=== PATIENT | female | born 1980 | race Caucasian/White ===

== ENCOUNTER 2017-01-20 15:19 | Emergency (ER) | payer BC ==
[2017-01-20 16:16] VITALS: BP 127/68
--- NOTE | 2017-01-20 16:36 | UC ---
Ear Complaint HPI - HPI Summary HPI Summary: 36 yo female with onset of left otalgia/left eye redness and d/c and sinus pressure and pain that started the past day or so no f/c no cp or sob has chronic sinus congestion ...takes flonase no eye pain but has has d/c - History of Current Complaint Chief Complaint: UCRespiratory Stated Complaint: HEAD COLD Time Seen by Provider: 01/20/17 16:22 Hx Obtained From: Patient Hx Last Menstrual Period: 01/02/17 Onset/Duration: Gradual Onset, Lasting Hours Severity Initially: Moderate Severity Currently: Moderate Pain Intensity: 3 Pain Scale Used: 0-10 Numeric Associated Signs/Symptoms: Positive: URI Symptoms - Allergies/Home Medications Allergies/Adverse Reactions: Allergies Allergy/AdvReac Type Severity Reaction Status Date / Time Eggs or Egg-derived Products Allergy Severe facial and Verified 01/20/17 16:10 lip swelling dairy Allergy Hives Uncoded 01/20/17 16:10 Home Medications: Home Medications predniSONE TAB* [Deltasone TAB*] 1 tab DAILY 01/20/17 [History Confirmed ] PMH/Surg Hx/FS Hx/Imm Hx Previously Healthy: Yes - Surgical History Surgical History: Yes Surgery Procedure, Year, and Place: C SECTION,TUBAL LIGATION - Family History Known Family History: Positive: Hypertension - Social History Alcohol Use: Rare Substance Use Type: None Smoking Status (MU): Former Smoker Type: Cigarettes Length of Time of Smoking/Using Tobacco: ON AND OFF 5-6 YRS Have You Smoked in the Last Year: Yes Household Exposure Type: Cigarettes - Immunization History Most Recent Influenza Vaccination: no Review of Systems Constitutional: Negative Skin: Negative Eyes: Drainage, Eye Redness ENT: Sore Throat, Ear Ache, Nasal Discharge, Sinus Congestion Respiratory: Negative Cardiovascular: Negative Gastrointestinal: Negative Genitourinary: Negative Motor: Negative Neurovascular: Negative Musculoskeletal: Negative Neurological: Negative Psychological: Negative Is Patient Immunocompromised?: No All Other Systems Reviewed And Are Negative: Yes Physical Exam Triage Information Reviewed: Yes Appearance: Well-Appearing, No Pain Distress, Well-Nourished Vital Signs: Initial Vital Signs Temp 98.1 F 01/20/17 16:12 Pulse 75 01/20/17 16:12 Resp 16 01/20/17 16:12 BP 127/68 01/20/17 16:12 Pulse Ox 100 01/20/17 16:12 Vital Signs Reviewed: Yes Eyes: Positive: Conjunctiva Inflamed - left, Discharge ENT: Positive: Hearing grossly normal, Nasal congestion, Nasal drainage, Uvula midline Neck: Positive: Supple, Nontender, No Lymphadenopathy Respiratory: Positive: Lungs clear, Normal breath sounds, No respiratory distress Cardiovascular: Positive: RRR, No Murmur Neurological: Positive: Alert Psychological Exam: Normal Skin Exam: Normal Ear Complaint Course/Dx - Differential Dx/Diagnosis Provider Diagnoses: left conjunctivitis. left serous otitis media Discharge - Discharge Plan Condition: Stable Disposition: HOME Prescriptions: Amoxicillin PO (*) [Amoxicillin 875 MG (*)] 875 mg PO BID #20 tab Fluconazole 150 MG (NF) [Diflucan 150 mg (NF)] 150 mg PO ONCE #2 tab Polymyx/Trimethoprim OPTH* [Polytrim OPHTH*] 1 - 2 drop LEFT EYE QID #1 btl Patient Education Materials: Serous Otitis Media (ED), Conjunctivitis (ED) Referrals: Lor Freeman PA [Primary Care Provider] -
== END 2017-01-20 16:43 | disposition home or self-care (01) ==
LOC: UCCORT 15:19
DX: H10.9 Unspecified conjunctivitis (principal); H65.92 Unspecified nonsuppurative otitis media, left ear; Z87.891 Personal history of nicotine dependence
CPT/HCPCS: 99212; G0463

== ENCOUNTER 2017-02-07 08:31 | Emergency (ER) | payer BC ==
[2017-02-07 08:52] VITALS: BP 125/81
--- NOTE | 2017-02-07 09:20 | UC ---
Respiratory Complaint HPI - HPI Summary HPI Summary: She has had uri, sore throat and ear pain about two weeks ago and this improved with amoxicillin. She was better for a few days and then she had return of all symptoms again with left ear pressure. NO fevers. She has tried mucinex. . - History of Current Complaint Chief Complaint: UCGeneralIllness Stated Complaint: EAR(S),SORE THROAT Time Seen by Provider: 02/07/17 09:02 Hx Obtained From: Patient Hx Last Menstrual Period: 01/28/17 Onset/Duration: Gradual Onset, Lasting Weeks Timing: Constant Severity Initially: Moderate Severity Currently: Moderate Character: Cough: Nonproductive Aggravating Factors: Nothing Alleviating Factors: Nothing Associated Signs And Symptoms: Positive: URI, Nasal Congestion. Negative: Dyspnea, Fever, Chills, Wheezing, Calf Pain, Calf Swelling - Allergies/Home Medications Allergies/Adverse Reactions: Allergies Allergy/AdvReac Type Severity Reaction Status Date / Time Eggs or Egg-derived Products Allergy Severe facial and Verified 02/07/17 08:52 lip swelling dairy Allergy Hives Uncoded 02/07/17 08:52 PMH/Surg Hx/FS Hx/Imm Hx Previously Healthy: Yes - Surgical History Surgical History: Yes Surgery Procedure, Year, and Place: C SECTION,TUBAL LIGATION - Family History Known Family History: Positive: Hypertension - Social History Lives: With Family Alcohol Use: Rare Substance Use Type: None Smoking Status (MU): Former Smoker Type: Cigarettes Length of Time of Smoking/Using Tobacco: ON AND OFF 5-6 YRS Have You Smoked in the Last Year: Yes Household Exposure Type: Cigarettes - Immunization History Most Recent Influenza Vaccination: no Review of Systems ENT: Sore Throat, Ear Ache, Sinus Congestion Respiratory: Cough All Other Systems Reviewed And Are Negative: Yes Physical Exam Triage Information Reviewed: Yes Appearance: Well-Appearing, No Pain Distress, Well-Nourished Vital Signs: Initial Vital Signs Temp 99.3 F 02/07/17 08:46 Pulse 73 02/07/17 08:46 Resp 16 02/07/17 08:46 BP 125/81 02/07/17 08:46 Pulse Ox 98 02/07/17 08:46 Vital Signs Reviewed: Yes Eyes: Positive: Conjunctiva Clear. Negative: Conjunctiva Inflamed ENT: Positive: Normal ENT inspection, Pharyngeal erythema, Nasal congestion, TM bulging, Uvula midline. Negative: Nasal drainage, TM dull, TM red, Tonsillar swelling, Tonsillar exudate, Trismus, Muffled voice, Sinus tenderness Neck: Positive: Supple, Nontender, No Lymphadenopathy Respiratory: Positive: Lungs clear, Normal breath sounds, No respiratory distress, No accessory muscle use. Negative: Respiratory distress, Decreased breath sounds, Accessory muscle use, Crackles, Rhonchi, Stridor, Wheezing Cardiovascular: Positive: No Murmur, Pulses Normal, Brisk Capillary Refill Abdomen Description: Positive: Nontender, No Organomegaly, Soft. Negative: Distended, Guarding Musculoskeletal: Positive: Strength Intact, ROM Intact, No Edema Neurological: Positive: Alert, Muscle Tone Normal. Negative: Fatigued Psychological: Positive: Age Appropriate Behavior Skin: Negative: rashes UC Diagnostic Evaluation - Laboratory O2 Sat by Pulse Oximetry: 98 Respiratory Course/Dx - Course Course Of Treatment: supportive care with emphasis on decongestants. This is c/ w uri. No signs of bacterial secondary infection. - Differential Dx/Diagnosis Provider Diagnoses: uri. left ear pressure. Discharge - Discharge Plan Condition: Good Disposition: HOME Patient Education Materials: Upper Respiratory Infection (ED), Earache (ED) Referrals: Lor Freeman PA [Primary Care Provider] - Additional Instructions: Focus on decongestants. Return for any worsening.
== END 2017-02-07 09:18 | disposition home or self-care (01) ==
LOC: UCCORT 08:31
DX: J06.9 Acute upper respiratory infection, unspecified (principal); H93.8X2 Other specified disorders of left ear; Z91.011 Allergy to milk products; Z91.018 Allergy to other foods; Z87.891 Personal history of nicotine dependence
CPT/HCPCS: 99211; G0463

== ENCOUNTER 2017-10-02 09:58 | Emergency (ER) | payer BC ==
[2017-10-02 10:58] VITALS: BP 134/81
--- NOTE | 2017-10-02 11:51 | UC ---
Lower Extremity/Ankle HPI - HPI Summary HPI Summary: pt stubbed the tip of her R big toe last thursday on her stairs. the tip of the nail lited so she trimmed it. she has been soaking the foot daily but over the past couple of day the tip of the toe by her nail has gotten red, sore and has a little yellow-green drainage. pt denies any bone and joint pain. - History of Current Complaint Chief Complaint: UCLowerExtremity Stated Complaint: RIGHT FOOT (BIG TOE) COMPLAINT Time Seen by Provider: 10/02/17 11:30 Hx Obtained From: Patient Hx Last Menstrual Period: 09/13/17 Pain Intensity: 5 Aggravating Factor(s): Nothing Able to Bear Weight: Yes - Allergies/Home Medications Allergies/Adverse Reactions: Allergies Allergy/AdvReac Type Severity Reaction Status Date / Time egg Allergy Swelling Verified 10/02/17 10:56 Of Face,Lips,& Throat dairy Allergy Hives Uncoded 10/02/17 10:56 Home Medications: Home Medications Acetaminophen [Tylenol Extra Strength] 1,000 mg PO ONCE 10/02/17 [History Confirmed 10/02/17] PARoxetine HCL TAB* [Paxil TAB*] 20 mg PO DAILY 10/02/17 [History Confirmed ] PMH/Surg Hx/FS Hx/Imm Hx - Additional Past Medical History Additional PMH: allergies Psychological History: Anxiety - Surgical History Surgical History: Yes Surgery Procedure, Year, and Place: C SECTION,TUBAL LIGATION - Family History Known Family History: Positive: Hypertension - Social History Occupation: Employed Full-time Alcohol Use: Rare Substance Use Type: None Smoking Status (MU): Former Smoker Type: Cigarettes Length of Time of Smoking/Using Tobacco: ON AND OFF 5-6 YRS Have You Smoked in the Last Year: Yes Household Exposure Type: Cigarettes - Immunization History Most Recent Influenza Vaccination: no Hx Tetanus, Diphtheria Vaccination: Yes - less than 10 years Vaccination Up to Date: Yes Review of Systems Constitutional: Negative Skin: Other - swelling and pain by tip of nail on R great toe Eyes: Negative ENT: Negative Respiratory: Negative Cardiovascular: Negative Gastrointestinal: Negative Genitourinary: Negative Motor: Negative Neurovascular: Negative Musculoskeletal: Negative Neurological: Negative Psychological: Negative Is Patient Immunocompromised?: No All Other Systems Reviewed And Are Negative: Yes Physical Exam Triage Information Reviewed: Yes Appearance: Well-Appearing Vital Signs: Initial Vital Signs Temp 98.6 F 10/02/17 10:52 Pulse 81 10/02/17 10:52 Resp 18 10/02/17 10:52 BP 134/81 10/02/17 10:52 Pulse Ox 99 10/02/17 10:52 Vital Signs Reviewed: Yes Eyes: Positive: Conjunctiva Clear ENT: Positive: Normal ENT inspection Neck: Positive: Supple, Nontender Respiratory: Positive: Lungs clear, Normal breath sounds Cardiovascular: Positive: RRR, No Murmur Abdomen Description: Positive: Nontender, No Organomegaly, Soft Bowel Sounds: Positive: Present Musculoskeletal: Positive: ROM Intact Neurological: Positive: Alert Psychological: Positive: Age Appropriate Behavior Skin Exam: Normal, Other - R great toe: tip of nail mildly lifted. tip of toe with mild erythema, tenderness and swelling. a scant amount of clear crusting at edge of nail noted. rest of foot is non tender and has full s/v/m function. Lower Extremity Course/Dx - Course Course Of Treatment: pt declined xray citied no pain in bone. advised of risk for missed fx but still declined citing " I have no concern for any broken bones ". - Differential Dx/Diagnosis Provider Diagnoses: Paronychia R great toe to tip of nail area. Discharge - Sign-Out/Discharge Documenting (check all that apply): Patient Departure All imaging exams completed and their final reports reviewed: No Studies - Discharge Plan Condition: Stable Disposition: HOME Prescriptions: Cephalexin CAP* [Keflex CAP*] 500 mg PO TID 7 Days #21 cap Patient Education Materials: Paronychia (ED) Referrals: Lor Freeman PA [Primary Care Provider] - 5 Days - Billing Disposition and Condition Condition: STABLE Disposition: Home
== END 2017-10-02 11:56 | disposition home or self-care (01) ==
LOC: UCCORT 09:58
DX: L03.031 Cellulitis of right toe (principal); Z87.891 Personal history of nicotine dependence
CPT/HCPCS: 99212; G0463

== ENCOUNTER 2018-01-23 11:05 | Emergency (ER) | payer BC ==
[2018-01-23 11:55] VITALS: BP 126/80
[2018-01-23] MEDS ORDERED: predniSONE TAB* 20 MG PO ONE (12:03)
[2018-01-23] MEDS ORDERED: Famotidine TAB* 20 MG PO ONE (12:03)
[2018-01-23] MEDS ORDERED: diPHENhydraMINE PO* 25 MG PO ONE (12:03)
--- NOTE | 2018-01-23 13:03 | UC ---
Skin Complaint HPI - HPI Summary HPI Summary: 37 year old female presents for hives. States she has had episodes in the past and she has been evaluated by PCP and [facility] for this and no known cause has been determined. Last episode was in July 2017. States she has been having daily episodes of isolated hives that resolve on their own for past week. Went to bed last night with a patch of hives on the top of her left foot and this morning woke up with hives over entire body. Associated with severe itching. States lower lip feels a little swollen. Denies recent changes in medication, diet, soaps, detergents, lotions, cosmetics, contact with know environmental irritants, difficulty breathing, difficulty swallowing, chest pain , or palpitations. - History of Current Complaint Chief Complaint: UCSkin Time Seen by Provider: 01/23/18 11:58 Stated Complaint: SKIN CONCERN Hx Obtained From: Patient Hx Last Menstrual Period: 01/14/18 Pain Intensity: 0 - Allergy/Home Medications Allergies/Adverse Reactions: Allergies Allergy/AdvReac Type Severity Reaction Status Date / Time egg Allergy Swelling Verified 01/23/18 11:50 Of Face,Lips,& Throat dairy Allergy Hives Uncoded 01/23/18 11:50 PMH/Surg Hx/FS Hx/Imm Hx - Additional Past Medical History Additional PMH: Uriticaria, environmental allergies Previously Healthy: Yes Psychological History: Depression - Surgical History Surgical History: Yes Surgery Procedure, Year, and Place: C SECTION,TUBAL LIGATION - Family History Known Family History: Positive: Hypertension - Social History Occupation: Employed Full-time Lives: With Family Alcohol Use: Rare Substance Use Type: None Smoking Status (MU): Former Smoker Type: Cigarettes Length of Time of Smoking/Using Tobacco: 13 months ago Have You Smoked in the Last Year: Yes Household Exposure Type: Cigarettes - Immunization History Most Recent Influenza Vaccination: no Hx Tetanus, Diphtheria Vaccination: Yes - less than 10 years Vaccination Up to Date: Yes Review of Systems All Other Systems Reviewed And Are Negative: Yes Constitutional: Negative: Fever, Chills Skin: Positive: Rash - See HPI Respiratory: Negative: Shortness Of Breath, Cough Cardiovascular: Negative: Palpitations, Chest Pain Is Patient Immunocompromised?: No Physical Exam - Summary Physical Exam Summary: GENERAL APPEARANCE: Well developed, well nourished, alert and cooperative, and appears to be in no acute distress. EYES: Conjunctiva clear. No discharge. EARS: External auditory canals and tympanic membranes clear, hearing grossly intact. NOSE: No nasal discharge. THROAT: Oral cavity, lips, and pharynx normal. No inflammation, swelling, exudate, or lesions. Teeth and gingiva in good general condition. Airway intact. NECK: Neck supple, non-tender without lymphadenopathy. CARDIAC: Normal S1 and S2. No S3, S4 or murmurs. Rhythm is regular. There is no peripheral edema, cyanosis or pallor. Extremities are warm and well perfused. Capillary refill is less than 2 seconds. LUNGS: Clear to auscultation and percussion without rales, rhonchi, wheezing or diminished breath sounds. ABDOMEN: Positive bowel sounds. Soft, nondistended, nontender. No guarding or rebound. No masses or hepatosplenomegally. SKIN: Diffuse urticaria to neck, anterior trunk, waistline, and bilateral legs. Triage Information Reviewed: Yes Vital Signs: Initial Vital Signs Temp 98.4 F 01/23/18 11:52 Pulse 86 01/23/18 11:52 Resp 15 01/23/18 11:52 BP 126/80 01/23/18 11:52 Pulse Ox 100 01/23/18 11:52 Vital Signs Reviewed: Yes Re-Evaluation - Re-Evaluation First Eval Re-Evaluation Time: 12:56 Change: Improved Comment: Patient states itching has greatly improved. There is a mild improvement in the uricaria. No swelling of the lips, tongue, or throat. No SOB. Bilateral breath sounds clear. Course/Dx - Course Course Of Treatment: 37 year old female presents for hives. States she has had episodes in the past and she has been evaluated by PCP and [facility] for this and no known cause has been determined. Last episode was in July 2017. States she has been having daily episodes of isolated hives that resolve on their own for past week. Went to bed last night with a patch of hives on the top of her left foot and this morning woke up with hives over entire body. Associated with severe itching. States lower lip feels a little swollen. Denies recent changes in medication, diet, soaps, detergents, lotions, cosmetics, contact with know environmental irritants, difficulty breathing, difficulty swallowing, chest pain, or palpitations. Afbrile. VSS. Exam revealed diffuse urticaria to neck, anterior trunk, waistline, and bilateral legs without swelling to the lips, tongue, or throat. Bilateral breath sounds clear. Patient was given diphenhydramine 25 mg, famotidine 40 mg, and prednisone 40 mg PO with improvement in symptoms. Will have patient continue OTC certirizine daily, famotidine 40 mg daily x 7 days, and prednisone 40 mg x 5 days. She is to follow up with PCP if symptoms persist. Warning symptoms reviewed. Verbalizes understanding and agrees with POC. - Differential Diagnoses - Skin Complaint Differential Diagnoses: Allergic Reaction, Anaphylaxis, Angioedema, Urticaria - Diagnoses Provider Diagnosis: Urticaria Discharge - Sign-Out/Discharge Documenting (check all that apply): Patient Departure All imaging exams completed and their final reports reviewed: No Studies - Discharge Plan Condition: Stable Disposition: HOME Prescriptions: Famotidine TAB 40 MG(NF) [Pepcid TAB 40 MG(NF)] 40 mg PO DAILY 7 Days #7 tab predniSONE [Prednisone 20 MG TAB] 40 mg PO DAILY 5 Days #10 tablet Patient Education Materials: Urticaria (ED) Referrals: Lor Freeman PA [Primary Care Provider] - 7 Days Additional Instructions: You were given a dose of diphenhydramine (Benadryl) 25 mg, famotidine (Pepcid) 40 mg, and prednisone 40 mg in the clinic today with some improvement in your symptoms. Take your Zyrtec daily as prescribed. Take famotidine 40 mg daily for 7 days. Start tomorrow. Take prednisone 40 mg daily for 5 days. Start tomorrow. Follow up with your primary care provider in 1 week especially if symptoms are not improving. Seek immediate medical attention in the emergency room if you have swelling of the lips, tongue, or throat, difficulty breathing, or any worsening of symptoms. - Billing Disposition and Condition Condition: STABLE Disposition: Home
== END 2018-01-23 13:06 | disposition home or self-care (01) ==
LOC: UCCORT 11:05
DX: L50.9 Urticaria, unspecified (principal); Z87.891 Personal history of nicotine dependence
CPT/HCPCS: 99212; A9270-GY; G0463; J7512

== ENCOUNTER 2018-08-18 11:14 | Emergency (ER) | payer BC ==
[2018-08-18 12:13] VITALS: BP 139/73
--- NOTE | 2018-08-18 12:41 | UC ---
Skin Complaint HPI - HPI Summary HPI Summary: hives all over x 10 days was started on prednisone by her pcp but not getting better has had similar issues in the past , but prednisone will get rid of it but not this time itchy skin no new food / detergents , drinks no other symptoms - History of Current Complaint Chief Complaint: UCSkin Time Seen by Provider: 08/18/18 12:03 Stated Complaint: SKIN CONCERN Hx Obtained From: Patient Hx Last Menstrual Period: 01/14/18 ?: No Onset/Duration: Gradual Onset, Lasting Days - 10, Still Present Timing: Constant Onset Severity: Moderate Current Severity: Moderate Pain Intensity: 0 Location: Diffuse Aggravating Factor(s): Nothing Alleviating Factor(s): Nothing Associated Signs & Symptoms: Negative: Nausea, Vomiting, Weakness, Fever, Chills , Cough, Wheezing, Chest Pain, Tenderness - Allergy/Home Medications Allergies/Adverse Reactions: Allergies Allergy/AdvReac Type Severity Reaction Status Date / Time egg Allergy Swelling Verified 08/18/18 12:13 Of Face,Lips,& Throat dairy Allergy Hives Uncoded 08/18/18 12:13 Home Medications: Home Medications predniSONE [Prednisone 20 MG TAB] 20 mg PO DAILY 08/18/18 [History Confirmed 11/27] PMH/Surg Hx/FS Hx/Imm Hx - Additional Past Medical History Additional PMH: hives - Surgical History Surgical History: Yes Surgery Procedure, Year, and Place: C SECTION,TUBAL LIGATION - Family History Known Family History: Positive: Hypertension - Social History Alcohol Use: Occasionally Substance Use Type: None Smoking Status (MU): Former Smoker Type: Cigarettes Length of Time of Smoking/Using Tobacco: 13 months ago Have You Smoked in the Last Year: Yes Household Exposure Type: Cigarettes - Immunization History Most Recent Influenza Vaccination: no Hx Tetanus, Diphtheria Vaccination: Yes - less than 10 years Vaccination Up to Date: Yes Review of Systems All Other Systems Reviewed And Are Negative: Yes Constitutional: Positive: Negative Skin: Positive: Rash Eyes: Positive: Negative ENT: Positive: Negative Respiratory: Positive: Negative Cardiovascular: Positive: Negative Is Patient Immunocompromised?: No Physical Exam Triage Information Reviewed: Yes Appearance: Well-Appearing, No Pain Distress, Well-Nourished Vital Signs: Initial Vital Signs Temp 99.3 F 08/18/18 12:08 Pulse 83 08/18/18 12:08 Resp 18 08/18/18 12:08 BP 139/73 08/18/18 12:08 Pulse Ox 100 08/18/18 12:08 Vital Signs Reviewed: Yes Eye Exam: Normal Eyes: Positive: Conjunctiva Clear ENT: Positive: Normal ENT inspection, Hearing grossly normal, Pharynx normal Neck: Positive: Supple, Nontender, No Lymphadenopathy Respiratory Exam: Normal Respiratory: Positive: Chest non-tender, Lungs clear, Normal breath sounds Cardiovascular: Positive: RRR, No Murmur, Pulses Normal Skin: Positive: Rashes - diffuse hives, macular rash Course/Dx - Diagnoses Provider Diagnosis: Hives Discharge - Sign-Out/Discharge Documenting (check all that apply): Patient Departure All imaging exams completed and their final reports reviewed: No Studies - Discharge Plan Condition: Stable Disposition: HOME Patient Education Materials: Urticaria (ED) Referrals: Lor Freeman PA [Primary Care Provider] - 7 Days Additional Instructions: will check cbc / cmp , check for liver / kidney functions increase fluid, finish prednisone Benadryl 25 mg as needed follow up with your pcp in one week - Billing Disposition and Condition Condition: STABLE Disposition: Home
[2018-08-18 19:29] LABS: ABS Lymphocytes 0.8 10^3/ul (1.0-4.8); ABS Monocytes 0.6 10^3/ul (0-0.8); ABS Neutrophils 12.1 10^3/ul (1.5-7.7); Eosinophil % 0.1 %; Hematocrit 46 % (35-47); Hemoglobin 15.7 g/dL (12.0-16.0); Mean Corpuscular HGB Conc 34 g/dL (31-36); Mean Corpuscular Hemoglobin 31 pg (27-31); Mean Corpuscular Volume 90 fL (80-97); Mean Platelet Volume 8.6 fL (7.4-10.4); Platelet Count 355 10^3/uL (150-450); Red Blood Count 5.11 10^6 /uL (3.70-4.87); Red Cell Distribution Width 13 % (10-15); White Blood Count 13.5 10^3/uL (3.5-10.8)
[2018-08-18 19:39] LABS: Albumin 4.3 g/dL (3.2-5.2); Calcium 10.4 mg/dL (8.6-10.3); Total Bilirubin 0.4 mg/dL (0.2-1.0)
[2018-08-18 19:46] LABS: Albumin/Globulin Ratio 1.5 (1-3); BUN/Creatinine Ratio 20.9 (8-20); EGFR African American 90.9 (>60); EGFR Non-African American 75.1 (>60); Globulin 2.8 g/dL (2-4); Total Protein 7.1 g/dL (6.4-8.9)
--- NOTE | 2018-08-19 07:31 | UC ---
- Progress Note Progress Note: Lab work comes back from August 18, 2018 showing an elevated white blood cell count 13.5 with absolute neutrophils elevated at 12.1. Glucose is also elevated at 139. Further note the patient was here patient had a rash all over. Patient was on prednisone. Prednisone can cause all of these changes in laboratory values however, due to a rash the elevated white blood cell count and elevated glucose nursing to call patient to ensure that the patient is improving and the patient has appropriate follow-up. Course/Dx - Diagnoses Provider Diagnoses: Hives Discharge - Sign-Out/Discharge Documenting (check all that apply): Patient Departure All imaging exams completed and their final reports reviewed: No Studies - Discharge Plan Condition: Stable Disposition: HOME Patient Education Materials: Urticaria (ED) Referrals: Lor Freeman PA [Primary Care Provider] - 7 Days Additional Instructions: will check cbc / cmp , check for liver / kidney functions increase fluid, finish prednisone Benadryl 25 mg as needed follow up with your pcp in one week - Billing Disposition and Condition Condition: STABLE Disposition: Home
== END 2018-08-18 12:45 | disposition home or self-care (01) ==
LOC: UCCORT 11:14
DX: L50.9 Urticaria, unspecified (principal); Z87.891 Personal history of nicotine dependence
CPT/HCPCS: 36415; 80053; 85025; 99211; G0463

== ENCOUNTER 2019-05-12 17:11 | Emergency (ER) | payer BC ==
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
[2019-05-12] MEDS ORDERED: Ketorolac *IM* INJ* 60 MG/2 ML VIAL IM ONE (17:44)
[2019-05-12 17:48] VITALS: BP 135/106
== END 2019-05-12 17:51 | disposition home health service (06) ==
LOC: UCCORT 17:11
DX: S80.02XA Contusion of left knee, initial encounter (principal); V86.56XA Driver of dirt bike or motor/cross bike injured in nontraffic accident, initial encounter; Y93.89 Activity, other specified; Y92.9 Unspecified place or not applicable; Z91.012 Allergy to eggs; Z91.011 Allergy to milk products; Z87.891 Personal history of nicotine dependence
CPT/HCPCS: 96372; 99212; G0463; J1885